=== PATIENT | female | born 1995 | race Caucasian/White ===

== ENCOUNTER 2022-02-04 10:22 | Outpatient (CLI) | payer BC | END 2022-02-04 10:23 | disposition home or self-care (01) | LOC: CSHLAB 10:22 | PROVIDERS: ATTEND Obstetrics & Gynecology | DX: Z20.822 Contact with and (suspected) exposure to COVID-19 (principal) | CPT/HCPCS: 87811 ==

== ENCOUNTER 2022-02-05 19:38 | Inpatient (IN) | payer BC ==
[~2022-02-05 19:38] MED LIST: Bupivacaine 0.25% HCL 30 ML VIAL ONE
[2022-02-05 20:15] VITALS: BMI 29.7
[2022-02-05] MEDS ORDERED: Misoprostol 200 MCG TAB PR PRN (20:49)
[2022-02-05] MEDS ORDERED: Zolpidem Tartrate 5 MG TAB PO PRN (20:49)
[2022-02-05] MEDS ORDERED: Acetaminophen 500 MG TAB PO PRN (20:49)
[2022-02-05] MEDS ORDERED: Carboprost 250 MCG/ML AMP IM PRN (20:49)
[2022-02-05] MEDS ORDERED: Ondansetron PF 4 MG/2 ML Vial IVP PRN (20:49)
[2022-02-05] MEDS ORDERED: Methylergonovine 0.2 MG/ML VIAL IM PRN (20:49)
[2022-02-05] MEDS ORDERED: hydrALAZINE 20 MG/ML VIAL SLOW IVP PRN (20:49)
[2022-02-05] MEDS ORDERED: Ibuprofen 800 MG TAB PO PRN (20:49)
[2022-02-05] MEDS ORDERED: Lidocaine 1% (PF) 30 ML VIAL SC PRN (20:49)
[2022-02-05] MEDS ORDERED: Promethazine HCl 25 MG/ML VIAL IM PRN (20:49)
[2022-02-05] MEDS ORDERED: HYDROcodone/Acetaminophen 5/325 mg Tablet PO PRN (20:49)
[2022-02-05] MEDS ORDERED: Docusate 100 MG CAP PO PRN (20:49)
[2022-02-05] MEDS ORDERED: Diphenoxylate HCl/Atropine Tablet PO PRN ×2 (20:49)
[2022-02-05] MEDS ORDERED: Butorphanol Tartrate 1 MG/ML VIAL SLOW IVP PRN (20:49)
[2022-02-05] MEDS ORDERED: Vancomycin HCl 1 GM in Sodium Chloride 0.9% 250 ML 250 ML IVPB SCH (21:00)
[2022-02-05] MEDS ORDERED: NS w/ Oxytocin 30 units 500 ML IV SCH ×2 (21:00)
[2022-02-05] MEDS ORDERED: Lactated Ringer's 1,000 ML IV SCH (21:00)
[2022-02-05] MEDS ORDERED: Misoprostol 100 MCG TAB PO SCH (21:00)
[2022-02-06 00:21] LABS: Hemoglobin 14.5 g/dL (12.0-15.5); Mean Corpuscular HGB CONC 34.9 g/dL (32.0-36.0); Mean Corpuscular Hemoglobin 31.7 pg (27.0-33.0); Mean Corpuscular Volume 90.6 fl (81.6-98.3); Mean Platelet Volume 11.6 fl (7.4-10.4); Platelet Count 204 10x3/uL (150-450); RBC Distribution Width 13.6 % (11.5-14.5); Red Blood Cell (RBC) Count 4.58 10x6/uL (3.90-5.03); White Blood Cell (WBC) Count 13.5 10x3/uL (3.5-10.5)
[2022-02-06 00:51] LABS: HBSAg Index 0.33 S/CO (0-0.99); Hep B Surf Ag Non-Reactive S/CO (NonReactive); Syphilis Antibody Nonreactive (Nonreactive); Syphilis Antibody Index 0.04 S/CO (<1.00 Non-Reactive)
[2022-02-06] MEDS ORDERED: Fentanyl 2 mcg/Bup 0.1% Cadd 100 ML ONE (02:55)
[2022-02-06] MEDS ORDERED: Ondansetron PF 4 MG/2 ML Vial IVP PRN ×2 (03:48→09:18)
[2022-02-06] MEDS ORDERED: diphenhydrAMINE 50 MG/ML VIAL IVP PRN (03:48)
[2022-02-06] MEDS ORDERED: Ondansetron HCl/PF 4 MG/2 ML Vial IVP PRN (03:48)
[2022-02-06] MEDS ORDERED: Lactated Ringer's 500 ML IV PRN (03:48)
[2022-02-06] MEDS ORDERED: ePHEDrine Sulfate 50 MG/10 ML VIAL SLOW IVP PRN (03:48)
[2022-02-06] MEDS ORDERED: Promethazine HCl 25 MG/ML VIAL IM PRN ×2 (03:48→16:42)
[2022-02-06] MEDS ORDERED: Fentanyl 100 MCG/2 ML VIAL SLOW IVP PRN (03:48)
[2022-02-06] MEDS ORDERED: Moisturizing Cream (Eucerin) 113 GM JAR TOP PRN (03:48)
[2022-02-06] MEDS ORDERED: Naloxone HCl 0.4 mg/ml Vial IVP PRN ×2 (03:48)
[2022-02-06] MEDS ORDERED: Acetaminophen 325 MG TAB PO PRN (03:48)
[2022-02-06] MEDS ORDERED: Meperidine HCl/PF 25 MG/ML VIAL SLOW IVP PRN (03:48)
[2022-02-06] MEDS ORDERED: Communication Order-Pharmacy FS SCH (04:00)
[2022-02-06] MEDS ORDERED: Fentanyl 2 mcg/Bupivacaine 0.1% Cassette 100 ML EPIDURAL SCH (04:00)
[2022-02-06] MEDS ORDERED: Ketorolac Tromethamine 30 MG/ML VIAL IVP SCH (04:00)
[2022-02-06] MEDS ORDERED: Azithromycin 500 MG VIAL ONE (08:27)
[2022-02-06] MEDS ORDERED: Ondansetron PF 4 MG/2 ML Vial ONE (09:19)
[2022-02-06] MEDS ORDERED: Preparation H Ointment 28 GM TUBE PR PRN (16:42)
[2022-02-06] MEDS ORDERED: Milk Of Magnesia 30 ML UDCUP PO PRN (16:42)
[2022-02-06] MEDS ORDERED: Misoprostol 200 MCG TAB VAG PRN (16:42)
[2022-02-06] MEDS ORDERED: Benzocaine-Menthol 82.5 ML CAN TOP PRN (16:42)
[2022-02-06] MEDS ORDERED: HYDROcodone/Acetaminophen 5/325 mg Tablet PO PRN (16:42)
[2022-02-06] MEDS ORDERED: Lanolin Ointment 7 GM TUBE TOP PRN (16:42)
[2022-02-06] MEDS ORDERED: Zolpidem Tartrate 5 MG TAB PO PRN (16:42)
[2022-02-06] MEDS ORDERED: Boostrix 0.5 ML (Tdap) VIAL (>/=7 yrs of age) IM ONE (16:42)
[2022-02-06] MEDS ORDERED: Measles/Mumps/Rubella 10 MCG/0.5 ML VIAL SC ONE (16:42)
[2022-02-06] MEDS ORDERED: Bisacodyl 10 MG SUPP PR PRN (16:42)
[2022-02-06] MEDS ORDERED: Varicella virus, LIVE 0.5 ML VIAL SC ONE (16:42)
[2022-02-06] MEDS ORDERED: diphenhydrAMINE 25 MG CAP PO PRN (16:42)
[2022-02-06] MEDS ORDERED: NS w/ Oxytocin 30 units 500 ML IV SCH (16:42)
[2022-02-06] MEDS ORDERED: hydrALAZINE 20 MG/ML VIAL SLOW IVP PRN (16:42)
[2022-02-06] MEDS ORDERED: Tranexamic Acid 1,000 MG in Sodium Chloride 0.9% 250 ML 250 ML IVPB SCH (17:02)
[2022-02-06] MEDS ORDERED: Methylergonovine 0.2 MG/ML VIAL ONE (17:06)
[2022-02-06] MEDS ORDERED: Tranexamic Acid 1,000 MG/10 ML VIAL ONE (17:06)
[2022-02-06] MEDS: Ibuprofen 800 MG TAB PO SCH (21:17)
[2022-02-07 05:37] LABS: Hemoglobin 12.2 g/dL (12.0-15.5); Mean Corpuscular HGB CONC 34.8 g/dL (32.0-36.0); Mean Corpuscular Hemoglobin 31.4 pg (27.0-33.0); Mean Corpuscular Volume 90.5 fl (81.6-98.3); Mean Platelet Volume 11.1 fl (7.4-10.4); Platelet Count 121 10x3/uL (150-450); RBC Distribution Width 13.5 % (11.5-14.5); Red Blood Cell (RBC) Count 3.88 10x6/uL (3.90-5.03); White Blood Cell (WBC) Count 12.2 10x3/uL (3.5-10.5)
[2022-02-07] MEDS ORDERED: Azithromycin 500 MG in Sodium Chloride 0.9% 250 ML 250 ML IVPB SCH (08:30)
[2022-02-07] MEDS: Ibuprofen 800 MG TAB PO SCH ×4 (09:00→22:19)
[2022-02-07] MEDS: Ferrous Sulfate 325 MG TAB PO SCH ×2 (14:39→18:34)
[2022-02-07] MEDS: Docusate 100 MG CAP PO SCH (14:39)
[2022-02-07] MEDS: Prenatal Vitamin 1 TAB PO SCH (14:40)
[2022-02-08] MEDS: Ibuprofen 800 MG TAB PO SCH (05:43)
[2022-02-08] MEDS: Docusate 100 MG CAP PO SCH ×2 (07:28→09:22)
[2022-02-08] MEDS: Ferrous Sulfate 325 MG TAB PO SCH (07:28)
[2022-02-08 08:16] VITALS: BP 99/56; TEMP 98.1
[2022-02-08] MEDS: Prenatal Vitamin 1 TAB PO SCH (09:22)
== END 2022-02-08 12:45 | disposition home or self-care (01) | DRG 807 ==
LOC: CSHLD/OP 19:38 → CSHLD 21:19 → CSHPP 02-07 09:05
PROVIDERS: ADMIT Obstetrics & Gynecology; ATTEND Obstetrics & Gynecology
PROC: 10E0XZZ Delivery of Products of Conception, External Approach (ICD-10-PCS; principal; 2022-02-06)
DX: O42.02 Full-term premature rupture of membranes, onset of labor within 24 hours of rupture (principal); Z37.0 Single live birth; O99.824 Streptococcus B carrier state complicating childbirth; Z3A.39 39 weeks gestation of pregnancy; O24.420 Gestational diabetes mellitus in childbirth, diet controlled; Z90.89 Acquired absence of other organs; O40.3XX0 Polyhydramnios, third trimester, not applicable or unspecified; Z88.0 Allergy status to penicillin; Z88.1 Allergy status to other antibiotic agents; O71.82 Other specified trauma to perineum and vulva; O70.0 First degree perineal laceration during delivery
CPT/HCPCS: 36415; 51702; 85027; 86780; 86850; 86900; 86901; 87340; 87811; 99285; J0456; J2210; J2405; J2590; J3370; J7050; J7120; S0020